=== PATIENT | female | born 1940 | race Caucasian/White ===

== ENCOUNTER 2022-10-25 12:10 | Observation (INO) ==
--- NOTE | 2022-10-25 12:32 | Emergency Department Note ---
Impression & Plan Acute hypoxemic respiratory failure, Gastrointestinal bleed ED Provider Note NAME: NORBERTO ABRAMS AGE: 81 SEX: F : 1940 ARRIVES VIA: Ambulance INFORMANT: Patient, ED PROVIDER(S): Jose Noriega MD CHIEF COMPLAINT: Vomiting, dark stools MEDICAL DECISION MAKING: Patient presents due to concern for dark vomit as well as dark stools. The patient also syncopized and did receive chest compressions. IV was established blood was obtained. The patient was empirically consented for PRBCs. The patient was ordered IV fluids Protonix bolus and drip type and screen and chest x-ray. The patient was ordered Unasyn given the patient's vomiting and syncope. Patient currently denies any shortness of breath but does have a mild oxygen requirement on 2 to 3 L nasal cannula. Patient does have loose dark stools which are Hemoccult positive. The patient's blood work shows a normal white count hemoglobin of 11. Platelet count 420. The patient's kidney function with an elevated BUN which would be consistent with an upper GI bleed. Patient's chest x-ray does show cardiomegaly. I did speak with the on-call hospital service Dr. Fritz. Patient was admitted to the medicine service. I did speak with Dr. Dunaway with GI to explain that the patient likely had an upper GI bleed with dark runny stool. He stated that they would see the patient in consultation. Critical Care: I have personally spent 45 minutes of critical care time in direct management of this patient. This includes bedside care, interpretation of diagnostic studies, and testing, discussion with consultants, patient, and family members, and other require inpatient management activities. This 45 minutes is in excess of all separately billable procedures. Prior /Outside records reviewed: None Differential diagnosis: Diverticulosis, AVM, coagulopathy, colitis, inflammatory bowel disease, malignancy, Mattie-Aviles tear, esophagitis, peptic ulcer disease, variceal bleed, gastritis, epistaxis, fissure, hemorrhoids, as well as other pathologies. Diagnostics, as interpreted by me: ECG: Sinus rhythm, rate 92, wide QRS, right bundle branch block pattern. No ST elevations, T wave versions anteriorly laterally and inferiorly. Cardiac monitoring: An order was placed for continuous cardiac monitoring. The monitor shows a rate of 88 with sinus rhythm. Patient was placed on pulse oximetry Medical decision rules: None Imaging studies: See below I informally reviewed the patient's chest x-ray which shows no obvious pneumothorax. HPI: Patient presents from home due to concern for dark stools and dark vomit. The patient does take aspirin and Plavix. The patient started Plavix back in July for a TIA. Patient states she has been compliant with her medications. History of CABG years ago. Patient denies any falls or trauma. states that the syncope was brief and after an episode of vomiting. He did start compressions to the chest but she came to fairly quickly. The patient denies any chest pains or shortness of breath. No alcohol or tobacco use. Patient denies any leg swelling. They are visiting from [place] for the summer. Patient is also noted some dark stools just in the last 24 hours patient states that she has had a prior endoscopy and colonoscopy but does not think that there were any issues on this prior studies. PAST MEDICAL HISTORY: See Below CAD Hypertension Hyperlipidemia PAST SURGICAL HISTORY: See Below CABG Back surgery SOCIAL HISTORY: See Below Patient is retired primarily lives in [place] Patient denies alcohol tobacco or drug use HOME MEDICATIONS: See Below ALLERGIES: See Below VITALS: See Below PHYSICAL EXAMINATION: GENERAL: NAD, wearing glasses, nasal cannula in place non-toxic. EYE EXAM: Normal conjunctiva. PERRL, no anisocoria and EOM's grossly intact w/o pain. NECK: Supple, no nuchal rigidity, no adenopathy, non-tender. No signs of meningismus. FROM of the neck with good chin to chest and neck extension. No stridor. LUNGS: Clear to auscultation. Normal chest wall mechanics. HEART: NSR, systolic ejection murmur. ABDOMEN: Abdomen soft, non-tender, no masses, no rebound or guarding. BACK: No CVA TTP. SKIN: No rashes and no bruising. UPPER EXTREMITIES: Upper extremities are grossly normal. LOWER EXTREMITIES: Grossly normal, no edema. NEURO EXAM: A&O x3, cranial nerves II-XII grossly intact, normal speech, moves all 4 extremities. Past Med/Surg History Medical History Anxiety COPD (chronic obstructive pulmonary disease) HTN (hypertension) Hypothyroidism TIA (transient ischemic attack) July 2022 Surgical History History of back surgery 2013 S/P CABG x 3 2018 Social History Smoking Status: Former smoker Hx Alcohol Use: Yes Current Living Situation: Spouse and Family Feels Safe at Home: Yes Safety Concerns: Feels Safe At This Time Assistive Devices: None Allergies Allergies Allergy/AdvReac Type Severity Reaction Status Date / Time No Known Allergies Allergy Unverified 10/25/22 14:50 Home Meds Home Medications Medication Instructions Recorded Confirmed albuterol sulfate 90 mcg/actuation 2 puff inhalation Q4 PRN Shortness 10/25/22 10/25/22 aerosol inhaler Of Breath Or Wheezing atorvastatin 10 mg tablet 10 mg PO DAILY 10/25/22 10/25/22 clonazepam 0.5 mg tablet 0.5 mg PO BID PRN Anxiety 10/25/22 10/25/22 clopidogrel 75 mg tablet 75 mg PO DAILY 10/25/22 10/25/22 fluticasone 100 mcg-salmeterol 50 1 inh inhalation BID 10/25/22 10/25/22 mcg/dose blistr powdr for inhalation levothyroxine 50 mcg tablet 50 mcg PO DAILY 10/25/22 10/25/22 losartan 50 mg-hydrochlorothiazide 1 tab PO DAILY 10/25/22 10/25/22 12.5 mg tablet metoprolol succinate 100 mg 0 mg PO DAILY 10/25/22 10/25/22 tablet,extended release 24 hr Results & Data (ED) Vital Signs Vital Signs - 24 hr 10/25/22 12:13 10/25/22 12:23 10/25/22 12:46 Temperature 37.3 C Temperature Source Oral Pulse Rate 92 H Pulse Rhythm Regular Pulse Strength Normal Respiratory Rate 18 Respiratory Effort / Characteristics Non-Labored Respiratory Depth Normal Respiratory Pattern Regular Blood Pressure 127/69 Blood Pressure Mean 88 Blood Pressure Position Lying Pulse Oximetry 91 90 Oxygen Delivery Method Room Air Nasal Cannula Oxymask Oxygen Flow Rate 2 3 Sepsis Recent Fever Within 48 Hours No Sepsis New/Unexplained Change in Mental Status No Sepsis Action Taken by Nursing No Action Required 10/25/22 12:47 10/25/22 12:50 Temperature Temperature Source Pulse Rate 94 H Pulse Rhythm Pulse Strength Respiratory Rate Respiratory Effort / Characteristics Respiratory Depth Respiratory Pattern Blood Pressure Blood Pressure Mean Blood Pressure Position Pulse Oximetry Oxygen Delivery Method Oxymask Oxygen Flow Rate Sepsis Recent Fever Within 48 Hours Sepsis New/Unexplained Change in Mental Status Sepsis Action Taken by [facility] Medications Current Medication List: was personally reviewed by me Laboratory Data Attestation: I reviewed the patient's lab results. 10/25/22 18:13 10/25/22 12:25 Lab Results 10/25/22 10/25/22 10/25/22 Range/Units 12:25 12:25 12:25 WBC 8.21 (4.8-10.8) K/ul RBC 3.65 L (4.20-5.40) M/uL Hgb 11.6 L (12.0-16.0) g/dl Hct 34.7 L (37.0-47.0) % MCV 95.1 (80.0-100.0) fL MCH 31.8 (25.0-34.0) pg MCHC 33.4 (32.0-36.0) g/dL RDW Std Deviation 47.4 H (36.4-46.3) fL RDW Coeff of Lawson 13.4 (11.5-14.5) % Plt Count 420 H (130-400) K/uL MPV 10.1 (9.4-12.4) fL Immature Gran % (Auto) 0.6 % Neut % (Auto) 78.9 % Lymph % (Auto) 15.2 % [place] % (Auto) 4.8 % Eos % (Auto) 0.1 % Baso % (Auto) 0.4 % Neut # (Auto) 6.48 (1.40-6.50) K/uL Lymph # (Auto) 1.25 (1.2-3.4) K/uL [place] # (Auto) 0.39 (0.11-0.59) K/uL Eos # (Auto) 0.01 (0-0.50) K/uL Baso # (Auto) 0.03 (0-0.2) K/uL Immature Gran # (Auto) 0.05 (0.01-0.20) K/uL PT 10.9 (9.0-12.0) Seconds INR 1.0 (0.9-1.1) APTT 22.3 (21.0-31.0) Seconds PTT Ratio 0.8 Sodium 135 L (136-145) mmol/L Potassium 4.3 (3.5-5.1) mmol/L Chloride 101 (98-107) mmol/L Carbon Dioxide 25 (21-32) mmol/L Anion Gap 9 (3-11) BUN 63 H (6-23) mg/dl Creatinine 0.95 (0.6-1.2) mg/dl Est Cr Clr Drug Dosing 33.6 ml/min Est GFR ( Amer) 64.2 ml/min Est GFR (Non-Af Amer) 55.4 ml/min BUN/Creatinine Ratio 66.3 H (10-20) Glucose 127 H (70-99(Fasting)) mg/dl Calcium 9.0 (8.6-10.3) mg/dl Total Bilirubin 0.5 (0.2-1.0) mg/dl AST 24 (13-39) U/L ALT 22 (7-52) U/L Alkaline Phosphatase 54 (34-104) U/L Troponin I High Sens 6.7 (0-14) pg/ml Total Protein 6.0 (6.0-8.3) gm/dl Albumin 3.9 (3.4-5.0) gm/dl Globulin 2.1 L (2.5-4.0) gm/dl Albumin/Globulin Ratio 1.9 (0.9-2) SARS-CoV-2, RNA, NAAT (NEGATIVE) Blood Type Antibody Screen 10/25/22 10/25/22 Range/Units 12:27 13:38 WBC (4.8-10.8) K/ul RBC (4.20-5.40) M/uL Hgb (12.0-16.0) g/dl Hct (37.0-47.0) % MCV (80.0-100.0) fL MCH (25.0-34.0) pg MCHC (32.0-36.0) g/dL RDW Std Deviation (36.4-46.3) fL RDW Coeff of Lawson (11.5-14.5) % Plt Count (130-400) K/uL MPV (9.4-12.4) fL Immature Gran % (Auto) % Neut % (Auto) % Lymph % (Auto) % [place] % (Auto) % Eos % (Auto) % Baso % (Auto) % Neut # (Auto) (1.40-6.50) K/uL Lymph # (Auto) (1.2-3.4) K/uL [place] # (Auto) (0.11-0.59) K/uL Eos # (Auto) (0-0.50) K/uL Baso # (Auto) (0-0.2) K/uL Immature Gran # (Auto) (0.01-0.20) K/uL PT (9.0-12.0) Seconds INR (0.9-1.1) APTT (21.0-31.0) Seconds PTT Ratio Sodium (136-145) mmol/L Potassium (3.5-5.1) mmol/L Chloride (98-107) mmol/L Carbon Dioxide (21-32) mmol/L Anion Gap (3-11) BUN (6-23) mg/dl Creatinine (0.6-1.2) mg/dl Est Cr Clr Drug Dosing ml/min Est GFR ( Amer) ml/min Est GFR (Non-Af Amer) ml/min BUN/Creatinine Ratio (10-20) Glucose (70-99(Fasting)) mg/dl Calcium (8.6-10.3) mg/dl Total Bilirubin (0.2-1.0) mg/dl AST (13-39) U/L ALT (7-52) U/L Alkaline Phosphatase (34-104) U/L Troponin I High Sens (0-14) pg/ml Total Protein (6.0-8.3) gm/dl Albumin (3.4-5.0) gm/dl Globulin (2.5-4.0) gm/dl Albumin/Globulin Ratio (0.9-2) SARS-CoV-2, RNA, NAAT NEGATIVE (NEGATIVE) Blood Type A Positive Antibody Screen NEGATIVE Administered Medications Lactated Ringer's (Lr) 1,000 mls @ 100 mls/hr IV .Q10H JOSE Stop: 11/24/22 16:44 Last Admin: 10/25/22 17:07 Dose: 100 mls/hr Documented By: MTM Discontinued Medications Sodium Chloride (Nss) 500 mls @ 999 mls/hr IV .Q31M JOSE Stop: 10/25/22 13:15 Last Infusion: 10/25/22 13:53 Dose: 0 mls/hr Documented By: Admin: 10/25/22 12:53 Dose: 999 mls/hr Documented By: VISH Pantoprazole Sodium 80 mg/ (Dextrose) 120 mls @ 480 mls/hr IV ONE STA Stop: 10/25/22 12:57 Last Infusion: 10/25/22 13:52 Dose: 0 mls/hr Documented By: Admin: 10/25/22 13:36 Dose: 480 mls/hr Documented By: EVERARDO Pantoprazole Sodium 40 mg/ (Dextrose) 100 mls @ 20 mls/hr IV Q5H STA Stop: 10/25/22 17:42 Last Admin: 10/25/22 15:24 Dose: 8 mg/hr, 20 mls/hr Documented By: EVERARDO Ampicillin Sodium/Sulbactam Sodium 3,000 mg/ Sodium Chloride 108 mls @ 200 mls/hr IV NOW STA; Protocol Stop: 10/25/22 13:16 Last Infusion: 10/25/22 14:29 Dose: 0 mls/hr Documented By: Admin: 10/25/22 13:37 Dose: 200 mls/hr Documented By: EVERARDO Ondansetron HCl (Ondansetron Inj 2 Mg/Ml 2 Ml Vial) 4 mg IV ONE STA Stop: 10/25/22 12:44 Last Admin: 10/25/22 12:53 Dose: 4 mg Documented By: VISH Imaging Data Radiologist's Impression: Chest X-Ray 10/25/22 12:43 SINGLE VIEW CHEST CLINICAL HISTORY: Hypoxia. FINDINGS: An AP, portable, upright chest radiograph is obtained. No prior studies are available for comparison at the time of dictation. The patient is status post midline sternotomy. The heart is enlarged noting atherosclerotic calcification of the thoracic aorta. The pulmonary vasculature is noncongested. There is elevation of the right hemidiaphragm with bibasilar scarring/atelectasis. No airspace consolidation or large pleural effusion is identified. No pneumothorax is seen. The skeletal structures are osteopenic. The bony thorax is grossly intact. Degenerative change is noted in the shoulders. IMPRESSION: Cardiomegaly with no acute cardiopulmonary abnormality identified. ACT 112: Negative or not required by law. Electronically signed by: Lanre Valencia M.D. 10/25/2022 1:40 PM Discharge Plan Visit Data Chief Complaint: Vomiting Stated Complaint: VOMITING BLOOD ED Provider: Jose Noriega Discharge Problem: Acute hypoxemic respiratory failure, Gastrointestinal bleed Patient Disposition: Admitted As Inpatient Discharge Instructions Interventions: ED Discharge Assessment Last Done: 10/25/22 15:38
[2022-10-25] MEDS ORDERED: PANTOprazole 80 MG in DEXTROSE 5% 100 ML IV STA (12:43)
[2022-10-25] MEDS ORDERED: ONDANSETRON INJ 2 MG/ML 2 ML VIAL IV STA (12:43)
[2022-10-25] MEDS ORDERED: PANTOprazole 40 MG in DEXTROSE 5% 100 ML IV STA (12:43)
[2022-10-25] MEDS ORDERED: AMPICILLIN/SULBACTAM SOD 3,000 MG in 0.9 % SODIUM CHLORIDE 100 ML IV STA (12:44)
[2022-10-25] MEDS ORDERED: SODIUM CHLORIDE 0.9% 500 ML IV SCH (12:45)
[2022-10-25 13:18] LABS: Basophils # (auto) 0.03 K/uL (0-0.2); Basophils % (auto) 0.4 %; Eosinophils # (auto) 0.01 K/uL (0-0.50); Eosinophils % (auto) 0.1 %; Hematocrit (blood only) 34.7 % (37.0-47.0); Hemoglobin 11.6 g/dl (12.0-16.0); Immature Granulocytes # (auto) 0.05 K/uL (0.01-0.20); Immature Granulocytes % (auto) 0.6 %; Lymphocytes # (auto) 1.25 K/uL (1.2-3.4); Lymphocytes % (auto) 15.2 %; Mean Corpuscular Hemoglobin 31.8 pg (25.0-34.0); Mean Corpuscular Hgb Conc 33.4 g/dL (32.0-36.0); Mean Corpuscular Volume 95.1 fL (80.0-100.0); Mean Platelet Volume 10.1 fL (9.4-12.4); Monocytes # (auto) 0.39 K/uL (0.11-0.59); Monocytes % (auto) 4.8 %; Neutrophils # (auto) 6.48 K/uL (1.40-6.50); Neutrophils % (auto) 78.9 %; Platelet Count 420 K/uL (130-400); RDW Coefficient of Variation 13.4 % (11.5-14.5); RDW Standard Deviation 47.4 fL (36.4-46.3); Red Blood Count 3.65 M/uL (4.20-5.40); White Blood Count 8.21 K/ul (4.8-10.8)
[2022-10-25 13:37] LABS: Albumin Globulin Ratio 1.9 (0.9-2); Albumin Level 3.9 gm/dl (3.4-5.0); BUN Creatinine Ratio 66.3 (10-20); Bilirubin,Total 0.5 mg/dl (0.2-1.0); Creatinine Clr Calc Pharmacy 33.6 ml/min; Est GFR (African American) 64.2 ml/min; Est GFR (Non-African American) 55.4 ml/min; Globulin 2.1 gm/dl (2.5-4.0); Potassium 4.3 mmol/L (3.5-5.1)
[2022-10-25 13:41] LABS: Troponin I High Sensitivity 6.7 pg/ml (0-14)
--- NOTE | 2022-10-25 13:41 | XRay Report ---
SINGLE VIEW CHEST CLINICAL HISTORY: Hypoxia. FINDINGS: An AP, portable, upright chest radiograph is obtained. No prior studies are available for c omparison at the time of dictation. The patient is status post midline sternotomy. The heart is enlar ged noting atherosclerotic calcification of the thoracic aorta. The pulmonary vasculature is nonconge sted. There is elevation of the right hemidiaphragm with bibasilar scarring/atelectasis. No airspace consolidation or large pleural effusion is identified. No pneumothorax is seen. The skeletal structur es are osteopenic. The bony thorax is grossly intact. Degenerative change is noted in the shoulders. IMPRESSION: Cardiomegaly with no acute cardiopulmonary abnormality identified. ACT 112: Negative or not required by law. Electronically signed by: Lanre Valencia M.D. 10/25/2022 1:40 PM
[2022-10-25 13:42] LABS: Partial Thromboplastin Ratio 0.8; Partial Thromboplastin Time 22.3 Seconds (21.0-31.0); Prothrombin Time 10.9 Seconds (9.0-12.0)
--- NOTE | 2022-10-25 14:02 | History & Physical Report ---
Date of Service October 25, 2022 Assessment & Plan (1) Gastrointestinal bleed: Plan: BUN 63, Hgb 11.6 IV pantoprazole drip NPO IV fluids Hold aspirin and clopidogrel Consult gastroenterology for consideration of EGD H&H q6h, Transfuse < 8 in setting of active GI bleed. (2) Syncope: Plan: Suspected secondary to UGI bleed, acute blood loss and vagal stimulation with shower and vomiting +/- hypoxia. Monitor on telemetry (3) Hypoxia: Plan: Suspect aspiration pneumonitis secondary to vomiting +/- chest compressions No consolidation on CXR or lung auscultation to warrant further antibiotics Incentive spirometer Aim O2 sats > 90% Unclear if elevation in right hemidiaphragm is new, consider CT chest if persistent hypoxia present (4) HTN (hypertension): Plan: Hold metoprolol, losartan, HCTZ in setting of acute GI bleed (5) Hypothyroidism: Plan: Continue levothyroxine (6) COPD (chronic obstructive pulmonary disease): Plan: No suspected exacerbation Continue Symbicort of hospital formulary equivalent Albuterol PRN (7) Anxiety: Plan: Klonopin 0.5mg PO HS Plan VTE Prophylaxis - SCDs Diet - NPO Disposition - observation to med/tele Admission and Anticipated Discharge Date Admission Date: October 25, 2022 History of Present Illness Chief Complaint: Coffee-ground vomiting Primary Care Provider: NO PCP Judit Pimentel is an 81 year old female who presents to the ER with a syncopal event, coffee ground emesis and melena. She has no history of a GI bleed or ulcers previously but recently added clopidogrel to aspirin due to a transient ischemic attack that occurred in July 2022. She reports feeling general fatigue but no specific symptoms the last couple of days. However this morning she got up feeling generally awful and weak. She went ot the bathroom and had 4 diarrhea black movements and vomited once. She made her feel somewhat better and she was able to lie down and go back to sleep. However again when she woke up she felt sick again and her called for an ambulance. She tried to have a shower but this made her feel faint. She then had coffee ground vomiting and had a syncopal event at the sink. Her performed a few chest compressions but she came to quickly. The patient currently has no chest pain, shortness of breath or dizziness at rest. No abdominal pain associated with episodes or currently. No prior GI ulcers or GI bleed. Very rare heartburn - might take famotidine once a month. Takes acetaminophen 1000mg 1-2 times a day, 1300mg ER at night for arthritis pain. No NSAIDs. The patient lives in [place] and has her care performed down there. She is in [place] visiting her daughter. She reports no home oxygen at baseline. In the ER she had heme positive liquid black stool. Hemoglobin 11.6. She was consented for blood and referred to medicine for admission and ongoing management of suspected GI bleed. Allergies Allergy/AdvReac Type Severity Reaction Status Date / Time No Known Allergies Allergy Unverified 10/25/22 14:50 Home Medications Medication Instructions Recorded Confirmed Type albuterol sulfate 90 mcg/actuation 2 puff inhalation Q4 PRN Shortness 10/25/22 10/25/22 History aerosol inhaler Of Breath Or Wheezing atorvastatin 10 mg tablet 10 mg PO DAILY 10/25/22 10/25/22 History clonazepam 0.5 mg tablet 0.5 mg PO BID PRN Anxiety 10/25/22 10/25/22 History clopidogrel 75 mg tablet 75 mg PO DAILY 10/25/22 10/25/22 History fluticasone 100 mcg-salmeterol 50 1 inh inhalation BID 10/25/22 10/25/22 History mcg/dose blistr powdr for inhalation levothyroxine 50 mcg tablet 50 mcg PO DAILY 10/25/22 10/25/22 History losartan 50 mg-hydrochlorothiazide 1 tab PO DAILY 10/25/22 10/25/22 History 12.5 mg tablet metoprolol succinate 100 mg 0 mg PO DAILY 10/25/22 10/25/22 History tablet,extended release 24 hr Past Med/Surg History Medical History Anxiety COPD (chronic obstructive pulmonary disease) HTN (hypertension) Hypothyroidism TIA (transient ischemic attack) July 2022 Surgical History History of back surgery 2013 S/P CABG x 3 2017 Social History Smoking Status: Former smoker Hx Alcohol Use: Yes Current Living Situation: Spouse and Family Feels Safe at Home: Yes Safety Concerns: Feels Safe At This Time Assistive Devices: None Review of Systems Review of Systems: All systems reviewed & are unremarkable except as noted in HPI & below Physical Exam Constitutional: WD/WN, vitals as above Eyes: PERRL, conjunctivae normal, anicteric sclerae ENMT: external ear and nose normal, oropharynx normal Respiratory: normal respiratory effort, lungs clear to auscultation Cardiovascular: RRR, no murmur, no edema Gastrointestinal (Abdomen): normal bowel sounds, soft, nontender, no hepatosplenomegaly Musculoskeletal: no cyanosis or clubbing, extremities motor strength 5/5 Skin: no rashes, warm and dry Neurologic: moves all extremities and awake; not confused Psychiatric: A+Ox3, euthymic affect Genitourinary: no CVA tenderness Results & Data Results & Data Vital Signs (Past 12 Hours) Vital Signs Temp Pulse Resp BP Pulse Ox O2 Del Method O2 Flow Rate 10/25/22 12:50 94 H 10/25/22 12:47 Oxymask 10/25/22 12:46 90 Oxymask 3 10/25/22 12:23 Nasal Cannula 2 10/25/22 12:13 37.3 C 92 H 18 127/69 91 Room Air Laboratory Results Abnormal lab results 10/25/22 10/25/22 Range/Units 12:25 12:25 RBC 3.65 L (4.20-5.40) M/uL Hgb 11.6 L (12.0-16.0) g/dl Hct 34.7 L (37.0-47.0) % RDW Std Deviation 47.4 H (36.4-46.3) fL Plt Count 420 H (130-400) K/uL Sodium 135 L (136-145) mmol/L BUN 63 H (6-23) mg/dl BUN/Creatinine Ratio 66.3 H (10-20) Glucose 127 H (70-99(Fasting)) mg/dl Globulin 2.1 L (2.5-4.0) gm/dl Diagnostic Findings SINGLE VIEW CHEST CLINICAL HISTORY: Hypoxia. FINDINGS: An AP, portable, upright chest radiograph is obtained. No prior studies are available for comparison at the time of dictation. The patient is status post midline sternotomy. The heart is enlarged noting atherosclerotic calcification of the thoracic aorta. The pulmonary vasculature is noncongested. There is elevation of the right hemidiaphragm with bibasilar scarring/atelectasis. No airspace consolidation or large pleural effusion is identified. No pneumothorax is seen. The skeletal structures are osteopenic. The bony thorax is grossly intact. Degenerative change is noted in the shoulders. IMPRESSION: Cardiomegaly with no acute cardiopulmonary abnormality identified. Medications Administered ER Medications Given: NSS 500ml bolus Pantoprazole 80mg IV bolus then 8 mg/hr Ondansetron 4mg IV Unasyn 3000mg IV ECG Rate (beats per minute): 92 Rhythm: normal sinus Findings: + RBBB and + T-wave inversion (Inferiolateral); no acute ischemic change Comparison ECG Date: no prior available Code Status & VTE Plan Code Status Full VTE Prophylaxis Plan VTE Prophylaxis will be ordered: No PG Care Time/CCT Total # of Minutes Spent Total Time Spent with Patient: Total time spent is greater than 50% in coordination of care (as documented) at patient's floor/unit and/or counseling patient: Coding Level of Care Code 61850 INT INP/OBS CARE 3/75MIN Diagnoses Gastrointestinal bleed K92.2 Syncope R55 Hypoxia R09.02 HTN (hypertension) I10 Hypothyroidism E03.9 COPD (chronic obstructive pulmonary disease) J44.9 Anxiety F41.9
--- NOTE | 2022-10-25 14:31 | Electrocardiogram Report ---
Test Reason : Blood Pressure : / mmHG Vent. Rate : 092 BPM Atrial Rate : 092 BPM P-R Int : 166 ms QRS Dur : 130 ms QT Int : 392 ms P-R-T Axes : -11 -11 -35 degrees QTc Int : 484 ms Normal sinus rhythm Right bundle branch block T wave abnormality, consider inferolateral ischemia Abnormal ECG No previous ECGs available Confirmed by Aaron Narayan ([id number]) on 10/25/2022 2:30:45 PM Referred By: Confirmed By:Domingo Narayan
[2022-10-25 15:23] LABS: Hematocrit (blood only) 31.5 % (37.0-47.0); Hemoglobin 10.8 g/dl (12.0-16.0)
[2022-10-25] MEDS ORDERED: ALBUTEROL HFA 8 GM INHALER INH PRN (16:44)
[2022-10-25] MEDS: LACTATED RINGER'S 1,000 ML IV SCH (17:07)
[2022-10-25 19:00] LABS: Hematocrit (blood only) 30.6 % (37.0-47.0); Hemoglobin 10.3 g/dl (12.0-16.0)
[2022-10-25] MEDS: PANTOprazole 40 MG in DEXTROSE 5% 100 ML IV SCH (20:50)
[2022-10-25] MEDS: clonazePAM 0.5 MG TAB PO PRN (20:53)
[2022-10-25] MEDS ORDERED: PANTOprazole 40 MG in SYRINGE 0 ML IV SCH (21:00)
[2022-10-25] MEDS ORDERED: ACETAMINOPHEN 1,000 MG/100 ML VIAL IV PRN (21:04)
[2022-10-25] MEDS: FLUTICASONE/VILANTEROL 100/25MCG 14 PUFFS/INHALER INH SCH (21:25)
[2022-10-26 01:02] LABS: Hematocrit (blood only) 27.7 % (37.0-47.0); Hemoglobin 9.6 g/dl (12.0-16.0)
[2022-10-26] MEDS: PANTOprazole 40 MG in DEXTROSE 5% 100 ML IV SCH ×2 (01:12→06:09)
[2022-10-26] MEDS: LACTATED RINGER'S 1,000 ML IV SCH ×2 (03:01→21:20)
[2022-10-26] MEDS: LEVOTHYROXINE SODIUM 50 MCG TABLET PO SCH (05:51)
--- NOTE | 2022-10-26 07:30 | XRay Report ---
XR chest 1V portable CLINICAL HISTORY: hypoxia TECHNIQUE: Single frontal radiograph of the chest was obtained. Comparison: Comparison is made to chest radiograph 10/25/2022 FINDINGS: Median sternotomy wires are unchanged. Calcified aortic knob is seen. Lungs are underinflated but frannie ar. No evidence of pleural effusion or pneumothorax. IMPRESSION: No acute chest disease. ACT 112: Negative or not required by law. Electronically signed by: Jose Bowens M.D. 10/26/2022 7:28 AM
--- NOTE | 2022-10-26 08:17 | Anesthesiology Consultation ---
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 Abelino Roca MD Height/Weight Height: 4 ft 9 in Weight: 59.4 kg Allergies Allergy/AdvReac Type Severity Reaction Status Date / Time No Known Allergies Allergy Unverified 10/25/22 14:50 Medications Home Medications Medication Instructions Recorded Confirmed Last Taken albuterol sulfate 90 mcg/actuation 2 puff inhalation Q4 PRN Shortness 10/25/22 10/25/22 Unknown aerosol inhaler Of Breath Or Wheezing atorvastatin 10 mg tablet 10 mg PO DAILY 10/25/22 10/25/22 Unknown clonazepam 0.5 mg tablet 0.5 mg PO BID PRN Anxiety 10/25/22 10/25/22 Unknown clopidogrel 75 mg tablet 75 mg PO DAILY 10/25/22 10/25/22 Unknown fluticasone 100 mcg-salmeterol 50 1 inh inhalation BID 10/25/22 10/25/22 Unknown mcg/dose blistr powdr for inhalation levothyroxine 50 mcg tablet 50 mcg PO DAILY 10/25/22 10/25/22 Unknown losartan 50 mg-hydrochlorothiazide 1 tab PO DAILY 10/25/22 10/25/22 Unknown 12.5 mg tablet metoprolol succinate 100 mg 0 mg PO DAILY 10/25/22 10/25/22 Unknown tablet,extended release 24 hr Active Medications Generic Name Dose Route Start Last Admin Trade Name Freq PRN Reason Stop Dose Admin Clonazepam 0.5 mg 10/25/22 16:16 10/25/22 20:53 Clonazepam 0.5 Mg Tab PO 11/24/22 16:15 0.5 mg BID PRN Administration Anxiety Fluticasone/Vilanterol 1 puffs 10/25/22 21:15 10/25/22 21:25 Fluticasone/Vilanterol 100/25mcg 14 Puffs/Inhaler INH 11/24/22 21:14 1 p uffs HS JOSE Administration Lactated Ringer's 1,000 mls @ 100 mls/hr 10/25/22 16:45 10/26/22 03:01 Lr IV 11/24/22 16:44 100 mls/hr .Q10H JOSE Administration Pantoprazole Sodium 40 mg/ 100 mls @ 20 mls/hr 10/25/22 20:30 10/26/22 06:09 Dextrose IV 11/24/22 20:29 8 mg/hr Q5H JOSE 20 mls/hr Administration 8 MG/HR Acetaminophen 1,000 mg in 100 mls @ 400 mls/hr 10/25/22 21:04 10/25/22 21:44 Ofirmev IV 10/28/22 21:03 Infused Q8H PRN Infusion pain Levothyroxine Sodium 50 mcg 10/26/22 06:30 10/26/22 05:51 Levothyroxine Sodium 50 Mcg Tablet PO 11/25/22 06:29 50 mcg DAILYBB JOSE Administration NPO Date Last Intake of Fluids: 10/25/22 Time Last Intake of Fluids: 21:00 Date Last Intake of Solids: 10/25/22 Past Medical History Medical History Anxiety COPD (chronic obstructive pulmonary disease) HTN (hypertension) Hypothyroidism TIA (transient ischemic attack) July 2022 Past Surgical History Surgical History History of back surgery 2013 S/P CABG x 3 2017 Social History Smoking Status: Former smoker Hx Alcohol Use: Yes alcohol intake frequency: holidays/special occasions only Physical Exam Vital Signs Last Vital Signs Temp 97.9 F 10/26/22 07:39 Pulse 78 10/26/22 07:39 Resp 18 10/26/22 07:39 BP 123/71 10/26/22 07:39 Pulse Ox 93 10/26/22 07:39 O2 Del Method Room Air 10/26/22 07:39 O2 Flow Rate 6 10/26/22 03:18 Testing Laboratory Results 10/26/22 00:20 10/25/22 12:25 PT 10.9 Seconds (9.0-12.0) 10/25/22 12:25 INR 1.0 (0.9-1.1) 10/25/22 12:25 APTT 22.3 Seconds (21.0-31.0) 10/25/22 12:25 Blood Type A Positive 10/25/22 12:27 Antibody Screen NEGATIVE 10/25/22 12:27 Electrocardiogram Date: 07/12/23 Normal sinus rhythm, rate 92 bpm Right bundle branch block T wave abnormality, consider inferolateral ischemia Abnormal ECG No previous ECGs available Confirmed by Aaron Narayan ([id number]) on 10/25/2022 2:30:45 PM Chest X-Ray Date: 10/26/22 Findings: + NAD
[2022-10-26 08:45] LABS: Basophils # (auto) 0.05 K/uL (0-0.2); Basophils % (auto) 0.7 %; Eosinophils # (auto) 0.08 K/uL (0-0.50); Eosinophils % (auto) 1.2 %; Hematocrit (blood only) 26.8 % (37.0-47.0); Hemoglobin 9.2 g/dl (12.0-16.0); Immature Granulocytes # (auto) 0.04 K/uL (0.01-0.20); Immature Granulocytes % (auto) 0.6 %; Lymphocytes # (auto) 1.71 K/uL (1.2-3.4); Lymphocytes % (auto) 25.3 %; Mean Corpuscular Hemoglobin 31.9 pg (25.0-34.0); Mean Corpuscular Hgb Conc 34.3 g/dL (32.0-36.0); Mean Corpuscular Volume 93.1 fL (80.0-100.0); Mean Platelet Volume 9.9 fL (9.4-12.4); Monocytes # (auto) 0.67 K/uL (0.11-0.59); Monocytes % (auto) 9.9 %; Neutrophils # (auto) 4.22 K/uL (1.40-6.50); Neutrophils % (auto) 62.3 %; Platelet Count 332 K/uL (130-400); RDW Standard Deviation 47.8 fL (36.4-46.3); Red Blood Count 2.88 M/uL (4.20-5.40); White Blood Count 6.77 K/ul (4.8-10.8)
[2022-10-26] MEDS ORDERED: FLUTICASONE/VILANTEROL 100/25MCG 14 PUFFS/INHALER INH SCH (09:00)
--- NOTE | 2022-10-26 09:09 | Gastrointestinal Consultation ---
Date of Consultation October 26, 2022 Assessment & Plan (1) Coffee ground emesis: (2) Melena: (3) Anemia: Plan -Continue IV Protonix gtt for now -Plavix has been held -Keep NPO for EGD this morning -Continue to monitor H/H -Further recommendations pending results of EGD History of Present Illness Reason for Consultation: Coffee-ground emesis Attending Physician: Kole Harrison MD History of Present Illness Patient is an 81 yo female who presented to [facility] with syncope, melena, & cofee ground emesis. She notes that she has been feeling more fatigued lately, but became acutely weak. She moved her bowels and had 4 black bowel movements. She had 1 episode of emesis and thought she was feeling better. However, she became dizzy and had an episode of coffee-ground emesis and syncope. She notes a history of GERD for which she uses Famotidine prn. She notes a history of EGD in the past due to an esophageal stricture. She states that her typical bingo clerk had wanted to repeat the procedure recently for ongoing dysphagia, but she declined. She does not take NSAIDs for pain, but does take a daily baby Aspirin & Plavix. She is currently admitted on IV Protonix gtt. She denies abdominal pain, nausea, vomiting, or further episodes of coffee-ground emesis. She notes she has chronic hypoxia issues, but does not utilize oxygen. Her H/H at present is 9.2/26.8. Allergies Allergy/AdvReac Type Severity Reaction Status Date / Time No Known Allergies Allergy Unverified 10/25/22 14:50 Home Medications Medication Instructions Recorded Confirmed Type albuterol sulfate 90 mcg/actuation 2 puff inhalation Q4 PRN Shortness 10/25/22 10/25/22 History aerosol inhaler Of Breath Or Wheezing atorvastatin 10 mg tablet 10 mg PO DAILY 10/25/22 10/25/22 History clonazepam 0.5 mg tablet 0.5 mg PO BID PRN Anxiety 10/25/22 10/25/22 History clopidogrel 75 mg tablet 75 mg PO DAILY 10/25/22 10/25/22 History fluticasone 100 mcg-salmeterol 50 1 inh inhalation BID 10/25/22 10/25/22 History mcg/dose blistr powdr for inhalation levothyroxine 50 mcg tablet 50 mcg PO DAILY 10/25/22 10/25/22 History losartan 50 mg-hydrochlorothiazide 1 tab PO DAILY 10/25/22 10/25/22 History 12.5 mg tablet metoprolol succinate 100 mg 0 mg PO DAILY 10/25/22 10/25/22 History tablet,extended release 24 hr Patient History Medical History Anxiety COPD (chronic obstructive pulmonary disease) HTN (hypertension) Hypothyroidism TIA (transient ischemic attack) July 2022 Surgical History History of back surgery 2013 S/P CABG x 3 2018 Social History Smoking Status: Former smoker Hx Alcohol Use: Yes Current Living Situation: Spouse and Family Feels Safe at Home: Yes Safety Concerns: Feels Safe At This Time Assistive Devices: None Review of Systems Constitutional: no fever and no chills Respiratory: no cough and no dyspnea Cardiovascular: no chest pain Gastrointestinal: + coffee ground emesis (now resolved) and + melena; no abdominal pain Integumentary: no problem reported Psychiatric: no problem reported Hematologic / Lymphatic: no unexplained weight loss Physical Exam Constitutional: well developed Respiratory: normal respiratory effort Cardiovascular: Rate/Rhythm: regular rate Gastrointestinal (Abdomen): normal bowel sounds, soft, nontender, no hepatosplenomegaly Musculoskeletal: Head/Neck/Chest: normocephalic Psychiatric: Orientation: alert and oriented x 3 Results & Data Vital Signs (Past 12 Hours) Vital Signs Temp Pulse Pulse Resp BP Pulse Ox O2 Del Method 10/26/22 08:48 37.1 C 86 16 140/64 90 Room Air 10/26/22 07:39 36.6 C 78 18 123/71 93 Room Air 10/26/22 07:20 Room Air 10/26/22 03:18 36.4 C L 74 18 119/69 96 Oxymask 10/26/22 00:04 36.7 C 75 20 117/73 98 Oxymask 10/25/22 23:17 71 10/25/22 22:10 Oxymask O2 Flow Rate 10/26/22 08:48 10/26/22 07:39 10/26/22 07:20 10/26/22 03:18 6 10/26/22 00:04 6 10/25/22 23:17 10/25/22 22:10 6 PG Care Time/CCT Total # of Minutes Spent Total Time Spent with Patient: Total time spent is greater than 50% in coordination of care (as documented) at patient's floor/unit and/or counseling patient: Coding Level of Care Code 95494 INT INP/OBS CARE 3/75MIN Diagnoses Coffee ground emesis K92.0 Melena K92.1 Anemia D64.9
[2022-10-26 09:53] LABS: BUN Creatinine Ratio 43.2 (10-20); Calcium 8.3 mg/dl (8.6-10.3); Creatinine Clr Calc Pharmacy 35.9 ml/min; Est GFR (African American) 70.4 ml/min; Est GFR (Non-African American) 60.8 ml/min; Potassium 3.3 mmol/L (3.5-5.1)
[2022-10-26] MEDS ORDERED: PROPOFOL IV EMULSION 10 MG/ML 20 ML VIAL IV ONE (09:58)
[2022-10-26] MEDS ORDERED: LIDOCAINE 2% 2 ML VIAL/AMP(20MG/ML) INFIL ONE (09:58)
--- NOTE | 2022-10-26 10:06 | GI REPORT ---
Patient Name: Judit Peres Procedure Date: 10/26/2022 9:04 AM Date of : 1940 Admit Type: Inpatient Age: 81 Gender: Female Attending MD: Alex Roca MD, Procedure: Upper GI endoscopy Providers: Alex Roca MD Referring MD: Referred Self Indications: Melena Medicines: Monitored Anesthesia Care Complications: No immediate complications. Estimated blood loss: None. Estimated Blood Loss: Estimated blood loss: none. Procedure: Pre-Anesthesia Assessment: - Prior Anticoagulants: The patient has taken Plavix (clopidogrel), last dose was 2 days prior to procedure. - ASA Grade Assessment: III - A patient with severe systemic disease. After obtaining informed consent, the endoscope was passed under direct vision. Throughout the procedure, the patient's blood pressure, pulse, and oxygen saturations were monitored continuously. The Endoscope was introduced through the mouth, and advanced to the second part of duodenum. The upper GI endoscopy was accomplished without difficulty. The patient tolerated the procedure well. Findings: A small hiatal hernia was present. The exam of the esophagus was otherwise normal. Scattered mild inflammation characterized by erosions and erythema was found in the gastric antrum. Biopsies were taken with a cold forceps for Helicobacter pylori testing. Estimated blood loss: none. Localized mildly erythematous mucosa without active bleeding and with no stigmata of bleeding was found in the duodenal bulb. no evidence of bleeding throughout exam. Impression: - Small hiatal hernia. - Gastritis. Biopsied. - Erythematous duodenopathy. Recommendation: - [facility] patient [facility] care. - Advance diet as tolerated today. - Await pathology results. -protonix 40 mg daily -colonoscopy as outpatient Alex Roca MD 10/26/2022 10:06:15 AM This report has been signed electronically. Note Initiated On: 10/26/2022 9:04 AM Number of Addenda: 0 I attest to the content of the Intraoperative Record and orders documented therein, exceptions below {[id number]}
--- NOTE | 2022-10-26 10:43 | Anesthesiology Progress Note ---
Date of Service October 26, 2022 Anesthesia Post Procedure Vital Signs Vital Signs: Temp Pulse Pulse Resp BP BP Pulse Ox 10/26/22 09:51 78 16 126/65 100 10/26/22 09:36 73 16 100/56 L 100 10/26/22 08:48 98.8 F 86 16 140/64 90 10/26/22 07:39 97.9 F 78 18 123/71 93 10/26/22 07:20 10/26/22 03:18 97.5 F L 74 18 119/69 96 10/26/22 00:04 98.1 F 75 20 117/73 98 10/25/22 23:17 71 10/25/22 22:10 10/25/22 19:34 98.2 F 81 18 130/77 99 10/25/22 16:52 81 10/25/22 15:50 10/25/22 15:50 98.2 F 78 20 101/67 95 10/25/22 15:00 80 18 96/58 L 100 10/25/22 12:50 94 H 10/25/22 12:47 10/25/22 12:46 90 10/25/22 12:23 10/25/22 12:13 99.1 F 92 H 18 127/69 91 O2 Del Method O2 Flow Rate 10/26/22 09:51 Room Air 10/26/22 09:36 Room Air 10/26/22 08:48 Room Air 10/26/22 07:39 Room Air 10/26/22 07:20 Room Air 10/26/22 03:18 Oxymask 6 10/26/22 00:04 Oxymask 6 10/25/22 23:17 10/25/22 22:10 Oxymask 6 10/25/22 19:34 Oxyhood 10/25/22 16:52 10/25/22 15:50 Oxymask 6 10/25/22 15:50 Oxymask 6 10/25/22 15:00 Oxymask 6 10/25/22 12:50 10/25/22 12:47 Oxymask 10/25/22 12:46 Oxymask 3 10/25/22 12:23 Nasal Cannula 2 10/25/22 12:13 Room Air Pain Intensity Head: Pain Intensity: 5 Transfer of Care Handoff Completed per policy Notes Mental Status: alert / awake / arousable and participated in evaluation Patient Amnestic to Procedure: Yes Nausea / Vomiting: adequately controlled Pain: adequately controlled Airway Patency, RR, SpO2: stable & adequate BP & HR: stable & adequate Hydration State: stable & adequate Anesthetic Complications: no major complications apparent and Pt Satisfied with anesthetic care
[2022-10-26] MEDS: ATORVASTATIN 10 MG TAB PO SCH (10:47)
[2022-10-26] MEDS: SUCRALFATE 1 GM TAB PO SCH ×3 (12:35→21:21)
[2022-10-26] MEDS: METOPROLOL SUCC 50MG EXT REL TAB PO SCH (12:35)
[2022-10-26 12:57] LABS: Hematocrit (blood only) 28.4 % (37.0-47.0); Hemoglobin 9.5 g/dl (12.0-16.0)
--- NOTE | 2022-10-26 14:23 | Hospitalist Progress Note ---
Date of Service October 26, 2022 Assessment & Plan (1) Gastrointestinal bleed: Plan: Appears to be due to gastric erosions that were seen on EGD but were not actively bleeding at the time of the endoscopy. Plavix has been discontinued. She is now on Protonix and Carafate therapy. Diet has been advanced. IV fluids have been tapered down. Gastroenterology consultation and recommendations appreciated (2) Syncope: Plan: Probably due to transient hypotension related to GI bleeding. Monitor on te lemetry (3) Hypoxia: Plan: Resolved. May have been due to aspiration pneumonitis secondary to vomiting +/- chest compressions. No consolidation on CXR or lung auscultation to warrant further antibiotics (4) HTN (hypertension): Plan: Blood pressure medications held on admission. Metoprolol was restarted today, October 26 (5) Hypothyroidism: Plan: Continue levothyroxine (6) COPD (chronic obstructive pulmonary disease): Plan: No suspected exacerbation. Continue Symbicort of hospital formulary equivalent. Albuterol PRN (7) Anxiety: Plan: Klonopin 0.5mg PO HS Plan Hopefully home tomorrow, October 27 Admission and Anticipated Discharge Date Admission Date: October 25, 2022 Subjective The patient was seen after her EGD earlier today. Gastroenterology consultation and recommendations appreciated. She is now on Protonix and Carafate therapy. Plavix has been discontinued. EGD revealed gastric erosions with no active bleeding. IV fluids have been tapered down. Diet has been advanced. Hopefully she can go home tomorrow, October 27 Review of Systems Review of Systems: Constitutional-no fever or chills ENT-no blurred vision, no double vision, no epistaxis, no sore throat Respiratory-no cough, no wheezing, no shortness of breath Cardiac-no palpitations, no chest pain, no syncope GI-no nausea, vomiting, diarrhea, hematochezia. She has had recent melena -no urinary retention, no urinary incontinence, no dysuria, no hematuria Musculoskeletal-no joint pain, no muscle tenderness Skin-no bruising, no rashes, no pruritus Neuro-no isolated weakness, no paresthesia, no weakness Psych-no depression, no anxiety Physical Exam Physical Exam: General-alert and oriented x3, no fevers, no chills HEENT-head atraumatic and normocephalic, pupils equal and reactive to light, extraocular muscles intact Neck-no lymphadenopathy or thyromegaly, trachea midline Chest-clear to auscultation percussion. No rales wheezing or rhonchi Cardiac-regular rate and rhythm, normal S1 and S2 Abdomen-normal bowel sounds, nontender, no hepatosplenomegaly Extremities-no cyanosis, clubbing, or edema Neuro-cranial nerves II through XII intact, motor and sensory function within normal limits, strength symmetrical , no focal deficits Psych-normal affect, normal mood Results & Data Results & Data Vital Signs (Past 12 Hours) Vital Signs Temp Pulse Pulse Resp BP Pulse Ox O2 Del Method 10/26/22 08:00 72 10/26/22 09:51 78 16 126/65 100 Room Air 10/26/22 09:36 73 16 100/56 L 100 Room Air 10/26/22 08:48 37.1 C 86 16 140/64 90 Room Air 10/26/22 07:39 36.6 C 78 18 123/71 93 Room Air 10/26/22 07:20 Room Air 10/26/22 03:18 36.4 C L 74 18 119/69 96 Oxymask O2 Flow Rate 10/26/22 08:00 10/26/22 09:51 10/26/22 09:36 10/26/22 08:48 10/26/22 07:39 10/26/22 07:20 10/26/22 03:18 6 Laboratory Results 10/26/22 12:26 10/26/22 08:13 PG Care Time/CCT Total # of Minutes Spent Total Time Spent with Patient: Total time spent is greater than 50% in coordination of care (as documented) at patient's floor/unit and/or counseling patient: Coding Level of Care Code 97015 SUB INP/OBS CARE 3/50MIN Diagnoses Gastrointestinal bleed K92.1 GI bleed type/associated pathology: melena Syncope R55 Hypoxia R09.02 HTN (hypertension) I10 Hypothyroidism E03.9 COPD (chronic obstructive pulmonary disease) J44.9 Anxiety F41.9 (1) Gastrointestinal bleed GI bleed type/associated pathology: melena Qualified Code(s): K92.1 - Melena
[2022-10-26 18:41] LABS: Hematocrit (blood only) 28.7 % (37.0-47.0); Hemoglobin 9.5 g/dl (12.0-16.0)
[2022-10-26] MEDS: FLUTICASONE/VILANTEROL 100/25MCG 14 PUFFS/INHALER INH SCH (21:21)
[2022-10-26] MEDS: PANTOprazole 40 MG TAB PO SCH (21:21)
[2022-10-26] MEDS: clonazePAM 0.5 MG TAB PO PRN (22:05)
[2022-10-27] MEDS: LEVOTHYROXINE SODIUM 50 MCG TABLET PO SCH (05:31)
[2022-10-27 07:27] LABS: Basophils # (auto) 0.06 K/uL (0-0.2); Eosinophils # (auto) 0.28 K/uL (0-0.50); Eosinophils % (auto) 4.7 %; Hematocrit (blood only) 25.4 % (37.0-47.0); Hemoglobin 8.7 g/dl (12.0-16.0); Immature Granulocytes # (auto) 0.02 K/uL (0.01-0.20); Immature Granulocytes % (auto) 0.3 %; Lymphocytes # (auto) 1.51 K/uL (1.2-3.4); Lymphocytes % (auto) 25.3 %; Mean Corpuscular Hemoglobin 32.5 pg (25.0-34.0); Mean Corpuscular Hgb Conc 34.3 g/dL (32.0-36.0); Mean Corpuscular Volume 94.8 fL (80.0-100.0); Monocytes # (auto) 0.52 K/uL (0.11-0.59); Monocytes % (auto) 8.7 %; Neutrophils # (auto) 3.57 K/uL (1.40-6.50); Platelet Count 324 K/uL (130-400); RDW Coefficient of Variation 13.7 % (11.5-14.5); RDW Standard Deviation 47.4 fL (36.4-46.3); Red Blood Count 2.68 M/uL (4.20-5.40); White Blood Count 5.96 K/ul (4.8-10.8)
[2022-10-27 07:43] LABS: BUN Creatinine Ratio 25.6 (10-20); Calcium 8.2 mg/dl (8.6-10.3); Creatinine Clr Calc Pharmacy 37.2 ml/min; Est GFR (African American) 72.4 ml/min; Est GFR (Non-African American) 62.5 ml/min; Potassium 3.7 mmol/L (3.5-5.1)
[2022-10-27] MEDS: SUCRALFATE 1 GM TAB PO SCH ×2 (08:40→12:26)
[2022-10-27] MEDS: PANTOprazole 40 MG TAB PO SCH (08:41)
[2022-10-27] MEDS: ATORVASTATIN 10 MG TAB PO SCH (08:41)
[2022-10-27] MEDS: METOPROLOL SUCC 50MG EXT REL TAB PO SCH (08:41)
[2022-10-27] MEDS ORDERED: PANTOprazole 40 MG TAB PO SCH (09:00)
--- NOTE | 2022-10-27 11:45 | Discharge Summary ---
Date of Service October 27, 2022 Admission HPI Per Admitting Provider Judit Pimentel is an 81 year old female who presents to the ER with a syncopal event, coffee ground emesis and melena. She has no history of a GI bleed or ulcers previously but recently added clopidogrel to aspirin due to a transient ischemic attack that occurred in July 2022. She reports feeling general fatigue but no specific symptoms the last couple of days. However this morning she got up feeling generally awful and weak. She went ot the bathroom and had 4 diarrhea black movements and vomited once. She made her feel somewhat better and she was able to lie down and go back to sleep. However again when she woke up she felt sick again and her called for an ambulance. She tried to have a shower but this made her feel faint. She then had coffee ground vomiting and had a syncopal event at the sink. Her performed a few chest compressions but she came to quickly. The patient currently has no chest pain, shortness of breath or dizziness at rest. No abdominal pain associated with episodes or curr ently. No prior GI ulcers or GI bleed. Very rare heartburn - might take famotidine once a month. Takes acetaminophen 1000mg 1-2 times a day, 1300mg ER at night for arthritis pain. No NSAIDs. The patient lives in [place] and has her care performed down there. She is in [place] visiting her daughter. She reports no home oxygen at baseline. In the ER she had heme positive liquid black stool. Hemoglobin 11.6. She was consented for blood and referred to medicine for admission and ongoing management of suspected GI bleed. Principal Diagnosis Upper GI bleed, syncope, transient hypoxemia, acute blood loss anemia, gastric erosions Discharge Exam General-alert and oriented x3, no fevers, no chills HEENT-head atraumatic and normocephalic, pupils equal and reactive to light, extraocular muscles intact Neck-no lymphadenopathy or thyromegaly, trachea midline Chest-clear to auscultation percussion. No rales wheezing or rhonchi Cardiac-regular rate and rhythm, normal S1 and S2 Abdomen-normal bowel sounds, nontender, no hepatosplenomegaly Extremities-no cyanosis, clubbing, or edema Neuro-cranial nerves II through XII intact, motor and sensory function within normal limits, strength symmetrical , no focal deficits Psych-normal affect, normal mood Discharge Data Allergies Allergy/AdvReac Type Severity Reaction Status Date / Time No Known Allergies Allergy Unverified 10/25/22 14:50 Consultations 10/25/22 14:05 ED Decision to Admit Stat 10/25/22 14:27 Consult Gastroenterology Routine Procedures Performed Operation Date: 10/26/22 17:45 Actual Procedures p EGD Biopsy Cytology - Alex Roca MD Hospital Course (1) Gastrointestinal bleed: Appears to be due to gastric erosions that were seen on EGD but were not actively bleeding at the time of the endoscopy. Plavix has been discontinued. She is now on Protonix and Carafate therapy. Diet has been advanced. IV fluids have been tapered down. Gastroenterology consultation and recommendations appreciated (2) Syncope: Probably due to transient hypotension related to GI bleeding. Monitor on telemetry. No recurrence (3) Hypoxia: Resolved. May have been due to aspiration pneumonitis secondary to vomiting +/- chest compressions. No consolidation on CXR or lung auscultation to warrant further antibiotics (4) HTN (hypertension): Blood pressure medications held on admission. Metoprolol was restarted on October 26 (5) Hypothyroidism: Continue levothyroxine (6) COPD (chronic obstructive pulmonary disease): No suspected exacerbation. Continue Symbicort of hospital formulary equivalent. Albuterol PRN (7) Anxiety: Klonopin 0.5mg PO HS Plan Home today, October 27 Total Time Total Time Spent Total Time Spent (In Minutes): 45-minute Discharge Plan Discharge Items Patient Disposition: Home - Self-Care Reason For Visit: UGI BLEED Discharge Diagnosis: Upper GI bleed, gastric erosions, syncope, transient hypoxemia, acute blood loss anemia Activity: Resume your previous activity Non-emergency contact: Primary Care Provider Call non-emergency contact if: you have any medication questions and your symptoms worsen Follow-up/Referrals: PCP,NO [Primary Care Provider] - Diet: Regular and Heart Healthy Addtl Attending Provider Instructions: Stop Plavix. Take Protonix indefinitely. Take Carafate for at least 2 weeks Pending Studies at Discharge: No Stand-Alone Forms: [employer], Smoking Cessation Medications and DC Order Prescriptions: New sucralfate 1 gram Tablet 1 g PO QID Qty: 60 0RF pantoprazole 40 mg Tablet,Delayed Release (Dr/Ec) 40 mg PO BID Qty: 60 0RF Continued clonazepam 0.5 mg tablet 0.5 mg PO BID PRN (Reason: Anxiety) levothyroxine 50 mcg tablet 50 mcg PO DAILY atorvastatin 10 mg tablet 10 mg PO DAILY Rx Instructions: Per dr 1st metoprolol succinate 100 mg tablet extended release 24 hr 100 mg PO DAILY Rx Instructions: Daughter is not sure of dose fluticasone propion-salmeterol 100-50 mcg/dose blister with device 1 inh INHALATION BID albuterol sulfate 90 mcg/actuation HFA aerosol inhaler 2 puff INHALATION Q4 PRN (Reason: Shortness Of Breath Or Wheezing) losartan-hydrochlorothiazide 50-12.5 mg tablet 1 tab PO DAILY Rx Instructions: Per dr 1st Discontinued clopidogrel 75 mg tablet 75 mg PO DAILY Discharge Orders: Discharge Order (Routine); Ordered 10/27/22 Ordered By: Kole Harrison Admission Data Admit Date/Time: 10/25/22 14:04 Attending Provider: Kole Harrison Admit Provider: Chandler Fritz Primary Care Provider: PCP,NO Other Providers: Chandler Fritz ; Naldo Dunaway Coding Level of Care Code 78638 INP/OBS DISCH >30 MIN Diagnoses Gastrointestinal bleed K92.1 GI bleed type/associated pathology: melena Syncope R55 Hypoxia R09.02 HTN (hypertension) I10 Hypothyroidism E03.9 COPD (chronic obstructive pulmonary disease) J44.9 Anxiety F41.9
== END 2022-10-27 13:39 | disposition home or self-care (01) ==
LOC: 2N 12:10 → ED 12:10 → SUATTDRO 14:04 → 2N 15:38